=== PATIENT | male | born 1980 | race African-American/Black ===

== ENCOUNTER 2017-09-11 15:30 | Emergency (ER) | payer OTHER ==
[~2017-09-11] VITALS: Ht 160 cm; Wt 59.0 kg
[2017-09-11 16:14] LABS: HEMATOCRIT 41.9 % (42.0-52.0); HEMOGLOBIN 14.3 gm/dL (14.0-18.0); MCH 29.8 pg (26.0-34.0); MCHC 34.2 g/dL (28.0-37.0); MCV 87.1 fL (80.0-100.0); PLATELET COUNT 234 thou/uL (150-400); RBC 4.82 mil/uL (4.50-6.00); RDW 12.2 % (10.5-14.5); WBC 4.4 thou/uL (4.0-11.0)
[2017-09-11 16:19] LABS: CALCIUM 8.6 mg/dL (8.5-10.1); CREATININE 0.9 mg/dL (0.7-1.3); POTASSIUM 3.4 mmol/L (3.5-5.1)
[2017-09-11] MEDS ORDERED: REGLAN 10 MG TA10 MG PO (16:52)
[2017-09-11 16:58] LABS: ABSOLUTE NEUTROPHILS 2.6 thou/uL (1.4-8.2)
[2017-09-11 16:59] LABS: PLATELET ESTIMATE NORMAL
[2017-09-11 17:06] VITALS: BP 106/62
== END 2017-09-11 19:01 | disposition home or self-care (01) ==
LOC: ER 15:30
PROVIDERS: Physician Assistant
DX: R51 Headache (principal); F12.10 Cannabis abuse, uncomplicated; F17.210 Nicotine dependence, cigarettes, uncomplicated